=== PATIENT | female | born 1990 | race Caucasian/White ===

== ENCOUNTER 2016-06-16 10:57 | Emergency (ER) | payer BC ==
[2016-06-16 12:09] VITALS: BP 145/92
--- NOTE | 2016-06-16 12:38 | RAD ---
Indication: Lateral LEFT foot pain following injury 2 days ago. Comparison: None. Technique: AP and lateral views LEFT foot. Report: Negative for fracture or malalignment. Small os tibiale externum accessory ossicle noted. Bipartite morphology of the sesamoid at the medial head of the flexor brevis. Negative for significant arthropathic change. Minimal plantar fascia origin bone spur. Mild soft tissue swelling about the foot without significant focality. IMPRESSION: Soft tissue swelling without evidence for fracture or articular malalignment.
--- NOTE | 2016-06-16 12:43 | UC ---
Lower Extremity/Ankle HPI - HPI Summary HPI Summary: left ankle / foot pain + injury to her left ankle and foot about 8 days ago after a fall - History of Current Complaint Chief Complaint: UCLowerExtremity Stated Complaint: S/P FALL LEFT ANKLE/FOOT INJURY Time Seen by Provider: 06/16/16 12:07 Hx Obtained From: Patient Hx Last Menstrual Period: 06/10/16 Onset/Duration: Sudden Onset, Lasting Days - 8, Still Present Severity Initially: Moderate Severity Currently: Moderate Aggravating Factor(s): Standing, Ambulation Alleviating Factor(s): Rest, Elevation, Ice Able to Bear Weight: Yes - Allergies/Home Medications Allergies/Adverse Reactions: Allergies Allergy/AdvReac Type Severity Reaction Status Date / Time No Known Allergies Allergy Verified 06/16/16 12:10 Home Medications: Home Medications Ibuprofen TAB* [Motrin TAB* 800 MG] 800 mg PO Q12H PRN 06/16/16 [History Confirmed 06/16/16] PMH/Surg Hx/FS Hx/Imm Hx Previously Healthy: Yes - Surgical History Surgical History: Yes Surgery Procedure, Year, and Place: wisdon teeth - Family History Known Family History: Negative: Diabetes - Social History Alcohol Use: Occasionally Substance Use Type: None Smoking Status (MU): Light Every Day Tobacco Smoker Review of Systems Constitutional: Negative Skin: Negative Eyes: Negative ENT: Negative Respiratory: Negative Cardiovascular: Negative Gastrointestinal: Negative All Other Systems Reviewed And Are Negative: Yes Physical Exam Triage Information Reviewed: Yes Appearance: Well-Appearing, No Pain Distress, Obese Vital Signs: Initial Vital Signs Temp 98.7 F 06/16/16 12:00 Pulse 82 06/16/16 12:00 Resp 20 06/16/16 12:00 BP 145/92 06/16/16 12:00 Pulse Ox 99 06/16/16 12:00 Vital Signs Reviewed: Yes Eyes: Positive: Conjunctiva Clear ENT: Positive: Normal ENT inspection, Hearing grossly normal, Pharynx normal Neck: Positive: Supple, Nontender, No Lymphadenopathy Respiratory: Positive: Chest non-tender, Lungs clear, Normal breath sounds Cardiovascular: Positive: RRR, No Murmur, Pulses Normal Musculoskeletal: Positive: Other: - left foot: no swelling + tenderness 4th and 5th metatarsa, left ankle: no swelling, no ecchymosis, no tenderness, good ROM Neurological: Positive: Alert Lower Extremity Course/Dx - Differential Dx/Diagnosis Provider Diagnoses: sprain left foot Discharge - Discharge Plan Condition: Stable Disposition: HOME Patient Education Materials: Foot Sprain (ED) Referrals: Non Staff,Doctor [Primary Care Provider] - 7 Days
== END 2016-06-16 12:48 | disposition home or self-care (01) ==
LOC: UCCORT 10:57
DX: S93.602A Unspecified sprain of left foot, initial encounter (principal); W19.XXXA Unspecified fall, initial encounter; Y93.9 Activity, unspecified; Y99.9 Unspecified external cause status; F17.210 Nicotine dependence, cigarettes, uncomplicated
CPT/HCPCS: 99201; G0463

== ENCOUNTER 2018-08-31 13:50 | Emergency (ER) | payer BC, OTHER ==
[2018-08-31 14:15] VITALS: BP 134/95
--- NOTE | 2018-08-31 14:42 | UC ---
Head Injury HPI - HPI Summary HPI Summary: head injury x 2 hrs ago she stood up and hit head to the stairs had vomiting x 1 , lightheaded, dizzy no LOC, no visual changes, no photophobia - History Of Current Complaint Chief Complaint: UCHeadInjury Stated Complaint: HEAD INJURY,VOMITTING Time Seen by Provider: 08/31/18 14:04 Hx Obtained From: Patient Hx Last Menstrual Period: 06/10/16 ?: No Onset/Duration: Sudden Onset, Lasting Hours - 2, Still Present Severity Currently: Moderate Severity Initially: Moderate Pain Intensity: 4 Character: Dull Aggravating Factor(s): Other - exertion Alleviating Factor(s): Nothing Associated Signs And Symptoms: Positive: Nausea, Vomiting. Negative: LOC (Time In Secs./Mins/Hrs), LOC Duration Unknown, Confusion, Memory Loss, Seizure, Epistaxis, Dental Malocclusion, Neck Pain - Allergies/Home Medications Allergies/Adverse Reactions: Allergies Allergy/AdvReac Type Severity Reaction Status Date / Time No Known Allergies Allergy Verified 08/31/18 14:18 Home Medications: Home Medications Citalopram TAB* [CeleXA TAB*] 40 mg PO DAILY 08/31/18 [History Confirmed ] Multivitamin [Once Daily] 1 each PO DAILY 08/31/18 [History Confirmed 08/31/18] Omeprazole 20 mg PO DAILY 08/31/18 [History Confirmed 08/31/18] PMH/Surg Hx/FS Hx/Imm Hx Previously Healthy: Yes - Surgical History Surgical History: Yes Surgery Procedure, Year, and Place: wisdon teeth, gastric sleeve - Family History Known Family History: Negative: Diabetes - Social History Alcohol Use: Occasionally Substance Use Type: None Smoking Status (MU): Light Every Day Tobacco Smoker Review of Systems All Other Systems Reviewed And Are Negative: Yes Constitutional: Positive: Negative Skin: Positive: Negative Eyes: Positive: Negative ENT: Positive: Negative Neurological: Positive: Headache Is Patient Immunocompromised?: No Physical Exam Triage Information Reviewed: Yes Appearance: Pain Distress, Obese Vital Signs: Initial Vital Signs Temp 97.0 F 08/31/18 13:53 Pulse 44 08/31/18 13:53 Resp 16 08/31/18 13:53 BP 134/95 08/31/18 13:53 Pulse Ox 100 07/16/19 13:53 Vital Signs Reviewed: Yes Eye Exam: Normal Eyes: Positive: Conjunctiva Clear ENT: Positive: Normal ENT inspection, Hearing grossly normal, Pharynx normal, Pharyngeal erythema Neck: Positive: Supple, Nontender, No Lymphadenopathy Respiratory: Positive: Chest non-tender, Lungs clear, Normal breath sounds, No respiratory distress Cardiovascular: Positive: Bradycardia - 44 b/m Abdomen Description: Positive: Nontender, Soft Bowel Sounds: Positive: Present Neurological Exam: Normal Neurological: Positive: Alert, Fatigued UC Physical Exam Vital Signs On Initial Exam: Initial Vitals Temp Pulse Resp BP Pulse Ox 97.0 F 44 16 134/95 100 08/31/18 13:53 08/31/18 13:53 08/31/18 13:53 08/31/18 13:53 08/31/18 13:53 - Neurological Exam Neurological: Sensory/Motor Intact, Alert, Oriented to Person Place, Time, CN Intact II-III, Normal Gait, Speech Normal Head Injury Course/Dx - Differential Dx/Diagnosis Provider Diagnosis: Head injury, Bradycardia Discharge - Sign-Out/Discharge Documenting (check all that apply): Patient Departure All imaging exams completed and their final reports reviewed: No Studies - Discharge Plan Condition: Stable Disposition: HOME Patient Education Materials: Head Injury (ED), Bradycardia (ED) Referrals: No Primary Care Phys,NOPCP [Primary Care Provider] - Additional Instructions: please go to [facility] ED for evaluation you would need a CT of head/ brain - Billing Disposition and Condition Condition: STABLE Disposition: Home
== END 2018-08-31 14:40 | disposition home or self-care (01) ==
LOC: UCCORT 13:50
DX: S09.90XA Unspecified injury of head, initial encounter (principal); W22.09XA Striking against other stationary object, initial encounter; Y93.89 Activity, other specified; Y92.9 Unspecified place or not applicable; R00.1 Bradycardia, unspecified; F17.210 Nicotine dependence, cigarettes, uncomplicated
CPT/HCPCS: 93005; 99212; G0463